=== PATIENT | female | born 1980 | race Caucasian/White ===

== ENCOUNTER 2019-04-15 15:18 | Emergency (ER) | payer OTHER ==
[2019-04-15 15:23] VITALS: BP 137/80; PULSE 95; RESP 18; TEMP 98.3
[2019-04-15] MEDS ORDERED: IBUPROFEN 600 MG TAB PO STA (15:57)
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
== END 2019-04-15 17:10 | disposition home or self-care (01) ==
LOC: EC 15:18
DX: M79.631 Pain in right forearm (principal); M79.601 Pain in right arm; M79.89 Other specified soft tissue disorders; S29.9XXA Unspecified injury of thorax, initial encounter; S39.91XA Unspecified injury of abdomen, initial encounter; S19.9XXA Unspecified injury of neck, initial encounter; S39.92XA Unspecified injury of lower back, initial encounter; Z91.030 Bee allergy status; V49.50XA Passenger injured in collision with unspecified motor vehicles in traffic accident, initial encounter; Y93.89 Activity, other specified; Y92.410 Unspecified street and highway as the place of occurrence of the external cause
CPT/HCPCS: 99284